=== PATIENT | female | born 1955 | race Caucasian/White ===

== ENCOUNTER 2020-07-19 11:55 | Outpatient (REF) | payer OTHER, SELFPAY ==
[2020-07-19 14:44] LABS: Alanine Aminotransferase 21 U/L (0-31); Anion Gap 13 (12-20); Blood Urea Nitrogen 14 mg/dL (9-16); Carbon Dioxide 27 mmol/L (22-29); Chloride 106 mmol/L (96-108); Estimated Glomerular Filt Rate > 60; Potassium 4.3 mmol/l (3.3-5.1); Sodium 142 mmol/L (135-145)
== END 2020-07-19 11:56 | disposition home or self-care (01) ==
LOC: HO.HMGCLDS 11:55
PROVIDERS: PCP Family Medicine; Visit Provider Family Medicine
DX: I10 Essential (primary) hypertension (principal); E78.00 Pure hypercholesterolemia, unspecified; Z79.899 Other long term (current) drug therapy
CPT/HCPCS: 80051; 82550; 82565; 84460; 84520

== ENCOUNTER 2021-04-26 14:16 | Outpatient (REF) | payer MEDICARE, SELFPAY ==
[2021-04-26 17:19] LABS: Alanine Aminotransferase 23 U/L (0-31); Anion Gap 12 (12-20); Blood Urea Nitrogen 18 mg/dL (9-16); Carbon Dioxide 24 mmol/L (22-29); Chloride 109 mmol/L (96-108); Estimated Glomerular Filt Rate > 60; Potassium 4.3 mmol/L (3.3-5.1); Sodium 141 mmol/L (135-145)
== END 2021-04-26 14:17 | disposition home or self-care (01) ==
LOC: HO.HMGCLDS 14:16
PROVIDERS: PCP Family Medicine; Visit Provider Family Medicine
DX: I10 Essential (primary) hypertension (principal); E78.00 Pure hypercholesterolemia, unspecified; Z79.899 Other long term (current) drug therapy
CPT/HCPCS: 36415; 80051; 82550; 82565; 84460; 84520

== ENCOUNTER 2021-08-01 10:59 | Outpatient (REF) | payer MEDICARE, SELFPAY ==
[2021-08-01 12:03] LABS: MANUAL DIFF FLAG NO
[2021-08-01 12:09] LABS: Basophils Absolute Auto 0.1 X10*3/uL (0.0-0.2); Basophils Percent Auto 1.4 % (0-2); Eosinophils Absolute Auto 0.3 X10*3/uL (0.0-0.4); Eosinophils Percent Auto 3.2 % (0-4); Hematocrit 37.8 % (37-47); Hemoglobin 12.7 g/dl (12.0-16.0); Imm Gran Abs Auto 0.02 X10*3/uL (0.00-0.03); Imm Gran Pct Auto 0.3 % (0.0-0.4); Lymphocytes Absolute Auto 1.7 X10*3/uL (1.2-4.9); Mean Corpuscular HGB Conc 33.6 g/dl (31.0-35.0); Mean Corpuscular Hemoglobin 30.6 pg (27.0-33.0); Mean Corpuscular Volume 91.1 fL (80-98); Mean Platelet Volume 8.4 fL (9.4-12.3); Monocytes Absolute Auto 0.5 X10*3/uL (0.1-1.2); Monocytes Percent Auto 6.3 % (2-11); Neutrophils Absolute Auto 5.2 X10*3/uL (2.0-8.3); Neutrophils Percent Auto 66.8 % (45-73); Platelet Count 505 X10*3/uL (160-400); Red Blood Count 4.15 X10*6/uL (4.20-5.50); Red Cell Distribution Width 12.5 % (11.0-16.0); White Blood Count 7.8 X10*3/uL (4.8-10.8)
[2021-08-01 12:32] LABS: Alanine Aminotransferase 19 U/L (0-31); Albumin Level 4.5 g/dL (3.5-5.0); Alkaline Phosphatase 67 U/L (39-117); Anion Gap 12 (12-20); Aspartate Amino Transferase 18 U/L (5-31); Bilirubin Total 0.4 mg/dL (0.0-1.0); Blood Urea Nitrogen 15 mg/dL (9-16); Calcium 9.9 mg/dL (8.4-10.2); Carbon Dioxide 26 mmol/L (22-29); Chloride 106 mmol/L (96-108); Estimated Glomerular Filt Rate > 60; Glucose Random 89 mg/dL (60-115); Potassium 4.3 mmol/L (3.3-5.1); Sodium 140 mmol/L (135-145); Total Protein 7.1 g/dL (6.5-8.0)
[2021-08-02 04:15] LABS: Syphilis Screen Nonreactive (Nonreactive)
[2021-08-02 17:42] LABS: Streptolysin O Antibody 65 IU/mL (<200)
[2021-08-05 15:06] LABS: TS Negative Control Passed; TS Panel A 0; TS Panel B 0; TS Positive Control Passed; TSpotTB Negative (SeeBelow)
[2021-08-06 14:12] LABS: HLA B27 Positive (Negative)
[2021-08-07 14:11] LABS: Angiotensin Converting Enzyme 22 U/L (9-67)
[2021-08-07 16:47] LABS: Lysozyme, Serum 6.1 mcg/mL (5.0-11.0)
== END 2021-08-01 11:00 | disposition home or self-care (01) ==
LOC: HO.HMGCLDS 10:59
PROVIDERS: PCP Family Medicine; Visit Provider Ophthalmology
DX: H20.011 Primary iridocyclitis, right eye (principal); H40.033 Anatomical narrow angle, bilateral; H33.312 Horseshoe tear of retina without detachment, left eye
CPT/HCPCS: 36415; 80053; 82164; 85025; 85549; 86060; 86481; 86780; 86812

== ENCOUNTER 2021-08-29 11:33 | Outpatient (REF) | payer MEDICARE, SELFPAY ==
--- NOTE | ~2021-08-29 | XR_ITS ---
EXAMINATION: XR LUMBOSACRAL SPINE CLINICAL INFORMATION: Back pain; rule out vertebral fracture COMPARISON: None TECHNIQUE: Three views of the lumbosacral spine. FINDINGS: There is mild diffuse osteopenia without focal destructive lesion. There is no fracture or vertebral malalignment. The posterior elements are intact. There is mild to moderate disc space narrowing at L3-L4 and L4-L5 and moderate narrowing at L5-S1. There are mild endplate degenerative changes at these levels. There is mild spondylosis throughout the lumbar region. The posterior elements are intact. There is bilateral sacroiliitis, more severe on the right. The paraspinal soft tissues appear unremarkable. XR/XR lumbar spine 2-3V IMPRESSION: Spondylosis in the lumbar spine. Bilateral sacroiliitis, greater on the right.
[2021-08-29 11:51] LABS: MANUAL DIFF FLAG NO
[2021-08-29 12:28] LABS: Basophils Percent Auto 0.3 % (0-2); Eosinophils Percent Auto 0.2 % (0-4); Hematocrit 40.6 % (37.0-47.0); Hemoglobin 13.4 g/dl (12.0-16.0); Imm Gran Abs Auto 0.06 X10*3/uL (0.00-0.03); Imm Gran Pct Auto 0.5 % (0.0-0.4); Lymphocytes Percent Auto 7.6 % (20-40); Mean Corpuscular Hemoglobin 30.7 pg (27.0-33.0); Mean Corpuscular Volume 93.1 fL (80.0-98.0); Mean Platelet Volume 9.1 fL (9.4-12.3); Monocytes Absolute Auto 0.4 X10*3/uL (0.1-1.2); Monocytes Percent Auto 3.1 % (2-11); Neutrophils Absolute Auto 11.3 x10*3/uL (2.0-8.3); Neutrophils Percent Auto 88.3 % (45-73); Platelet Count 376 X10*3/uL (160-400); Red Blood Count 4.36 X10*6/uL (4.20-5.50); Red Cell Distribution Width 13.7 % (11.0-16.0); White Blood Count 12.7 X10*3/uL (4.8-10.8)
[2021-08-29 12:36] LABS: Appearance Urine CLEAR; Color Urine YELLOW; Glucose Urine UA NEG (NEG); Leukocyte Esterase Urine NEG (NEG); Nitrite Urine NEG (NEG); Urine Blood NEG (NEG); Urine Ketones NEG (NEG); Urine Protein NEG (NEG-TRACE)
[2021-08-29 14:38] LABS: Erythrocyte Sedimentation Rate 5 MM/HR (0-20)
[2021-08-30 10:31] LABS: Lyme Abs Screen <0.90 index
[2021-08-30 14:11] LABS: Anti DNA DS Antibody <1 IU/mL; Antibody to SS-A Antigen <1.0 NEG AI (<1.0 NEG); Antibody to SS-B Antigen <1.0 NEG AI (<1.0 NEG)
[2021-08-31 12:07] LABS: Anti Nuclear Antibody Screen NEGATIVE (NEGATIVE)
[2021-09-03 16:06] LABS: Neutrophil Cyto Ab Screen NEGATIVE (NEGATIVE)
== END 2021-08-29 11:34 | disposition home or self-care (01) ==
LOC: HO.XRAY 11:33
PROVIDERS: PCP Family Medicine; Visit Provider Family Medicine
DX: M46.97 Unspecified inflammatory spondylopathy, lumbosacral region (principal); H20.9 Unspecified iridocyclitis
CPT/HCPCS: 36415; 72100; 81003; 85025; 85652; 86021; 86038; 86039; 86225; 86235; 86617; 86618

== ENCOUNTER 2021-09-24 14:14 | Outpatient (REF) | payer MEDICARE, SELFPAY | END 2021-09-24 14:15 | disposition home or self-care (01) | LOC: HO.HMGCLDS 14:14 | PROVIDERS: Visit Provider Internal Medicine | DX: Z20.822 Contact with and (suspected) exposure to COVID-19 (principal) | CPT/HCPCS: C9803; U0003; U0005 ==

== ENCOUNTER 2022-02-12 10:55 | Outpatient (REF) | payer MEDICARE, SELFPAY ==
--- NOTE | ~2022-02-12 | XR_ITS ---
EXAMINATION: XR CALCANEUS, RIGHT CLINICAL INFORMATION: Pain for one month. COMPARISON: None TECHNIQUE: Lateral and axial views of the right calcaneus were obtained. FINDINGS: The bones and soft tissues are normal. No fracture. Alignment is anatomic. Joint spaces are maintained. No enthesopathic spurs are evident at the calcaneus. XR/XR calcaneus RT min 2V IMPRESSION: Normal right calcaneus.
== END 2022-02-12 10:56 | disposition home or self-care (01) ==
LOC: HO.XRAY 10:55
PROVIDERS: PCP Family Medicine; Visit Provider Family Medicine
DX: M79.671 Pain in right foot (principal)
CPT/HCPCS: 73650

== ENCOUNTER 2022-03-25 11:00 | Outpatient (REF) | payer MEDICARE, SELFPAY ==
[2022-03-25 14:10] LABS: Alanine Aminotransferase 23 U/L (0-31); Anion Gap 10 (12-20); Blood Urea Nitrogen 15 mg/dL (9-16); Carbon Dioxide 27 mmol/L (22-29); Chloride 104 mmol/L (96-108); Estimated Glomerular Filt Rate > 60; Potassium 4.3 mmol/L (3.3-5.1); Sodium 137 mmol/L (135-145)
== END 2022-03-25 11:01 | disposition home or self-care (01) ==
LOC: HO.10HDL 11:00
PROVIDERS: Visit Provider Family Medicine
DX: I10 Essential (primary) hypertension (principal); E78.00 Pure hypercholesterolemia, unspecified; Z79.899 Other long term (current) drug therapy
CPT/HCPCS: 36415; 80051; 82550; 82565; 84460; 84520

== ENCOUNTER 2023-01-26 08:42 | Outpatient (REF) | payer MEDICARE, SELFPAY ==
[2023-01-26 12:15] LABS: Anion Gap 13 (12-20); Blood Urea Nitrogen 13 mg/dL (9-16); Carbon Dioxide 27 mmol/L (22-29); Chloride 106 mmol/L (96-108); Cholesterol 158 mg/dL; Estimated Glomerular Filt Rate > 60; Glucose Fasting 91 mg/dL (60-99); HDL Cholesterol 51 mg/dL; LDL Cholesterol Calculated 91 mg/dl; Potassium 4.5 mmol/L (3.3-5.1); Sodium 141 mmol/L (135-145); Triglycerides 82 mg/dL
== END 2023-01-26 08:43 | disposition home or self-care (01) ==
LOC: HO.HMGCLDS 08:42
PROVIDERS: PCP Family Medicine; Visit Provider Family Medicine
DX: I10 Essential (primary) hypertension (principal); E78.00 Pure hypercholesterolemia, unspecified; R73.9 Hyperglycemia, unspecified
CPT/HCPCS: 36415; 80051; 80061; 82565; 82947; 84520

== ENCOUNTER 2023-10-13 14:15 | Outpatient (REF) | payer MEDICARE, SELFPAY ==
[2023-10-13 16:18] LABS: Anion Gap 13 (12-20); Blood Urea Nitrogen 20 mg/dL (9-16); Carbon Dioxide 28 mmol/L (22-29); Chloride 107 mmol/L (96-108); Estimated Glomerular Filt Rate > 60; Potassium 4.5 mmol/L (3.3-5.1); Sodium 143 mmol/L (135-145)
== END 2023-10-13 14:16 | disposition home or self-care (01) ==
LOC: HO.HMGCLDS 14:15
PROVIDERS: PCP Family Medicine; Visit Provider Family Medicine
DX: I10 Essential (primary) hypertension (principal)
CPT/HCPCS: 36415; 80051; 82565; 84520

== ENCOUNTER 2024-06-20 07:19 | Outpatient (REF) | payer MEDICARE, SELFPAY ==
[2024-06-20 10:50] LABS: Alanine Aminotransferase 18 U/L (0-31); Anion Gap 13 (12-20); Aspartate Amino Transferase 15 U/L (5-31); Carbon Dioxide 24 mmol/L (22-29); Chloride 109 mmol/L (96-108); Cholesterol 162 mg/dL (<200); Estimated Glomerular Filt Rate > 60; Glucose Fasting 105 mg/dL (60-99); HDL Cholesterol 56 mg/dL (>40); LDL Cholesterol Calculated 89 mg/dL (<100); Potassium 4.2 mmol/L (3.3-5.1); Sodium 142 mmol/L (135-145); Triglycerides 86 mg/dL (<150)
== END 2024-06-20 07:20 | disposition home or self-care (01) ==
LOC: HO.HMGCLDS 07:19
PROVIDERS: PCP Family Medicine; Visit Provider Family Medicine
DX: I10 Essential (primary) hypertension (principal); E78.00 Pure hypercholesterolemia, unspecified; Z79.899 Other long term (current) drug therapy; Z83.3 Family history of diabetes mellitus
CPT/HCPCS: 36415; 80051; 80061; 82550; 82565; 82947; 84450; 84460

== ENCOUNTER 2024-08-03 10:05 | Outpatient (REF) | payer MEDICARE, SELFPAY ==
--- NOTE | ~2024-08-03 | XR_ITS ---
EXAMINATION: XR CHEST CLINICAL INFORMATION: Cough. COMPARISON: 02/20/2015 TECHNIQUE: 2 views of the chest were obtained. FINDINGS: Lungs clear. Heart and pulmonary vessels normal. No pleural effusions. Kyphosis in the thoracic spine but no fracture. XR/XR chest 2V IMPRESSION: Unremarkable examination. Electronically signed by: Adarsh Crow MD 08/03/2024 02:35 PM EDT RP
== END 2024-08-03 10:06 | disposition home or self-care (01) ==
LOC: HO.XRAY 10:05
PROVIDERS: PCP Family Medicine; Visit Provider Family Medicine
DX: R05.9 Cough, unspecified (principal)
CPT/HCPCS: 71046

== ENCOUNTER 2024-10-26 12:07 | Outpatient (REF) | payer MEDICARE, SELFPAY ==
[2024-10-26 12:56] LABS: MANUAL DIFF FLAG NO
[2024-10-26 13:03] LABS: Basophils Absolute Auto 0.1 X10*3/uL (0.0-0.2); Basophils Percent Auto 1.4 % (0-2); Eosinophils Absolute Auto 0.3 X10*3/uL (0.0-0.4); Eosinophils Percent Auto 2.8 % (0-4); Hematocrit 38.3 % (37.0-47.0); Hemoglobin 12.7 g/dl (12.0-16.0); Imm Gran Abs Auto 0.03 X10*3/uL (0.00-0.03); Imm Gran Pct Auto 0.3 % (0.0-0.4); Lymphocytes Absolute Auto 2.2 X10*3/uL (1.2-4.9); Lymphocytes Percent Auto 23.3 % (20-40); Mean Corpuscular HGB Conc 33.2 g/dl (31.0-35.0); Mean Corpuscular Hemoglobin 30.2 pg (27.0-33.0); Mean Corpuscular Volume 91.2 fL (80.0-98.0); Mean Platelet Volume 8.7 fL (9.4-12.3); Monocytes Absolute Auto 0.6 X10*3/uL (0.1-1.2); Monocytes Percent Auto 6.3 % (2-11); Neutrophils Absolute Auto 6.2 x10*3/uL (2.0-8.3); Neutrophils Percent Auto 65.9 % (45-73); Platelet Count 459 X10*3/uL (160-400); White Blood Count 9.4 X10*3/uL (4.8-10.8)
[2024-10-26 13:15] LABS: Alanine Aminotransferase 24 U/L (0-31); Albumin Level 4.3 g/dL (3.5-5.0); Alkaline Phosphatase 69 U/L (39-117); Anion Gap 9 (12-20); Aspartate Amino Transferase 21 U/L (5-31); Bilirubin Total 0.2 mg/dL (0.0-1.0); Blood Urea Nitrogen 15 mg/dL (9-16); Calcium 9.6 mg/dL (8.4-10.2); Carbon Dioxide 26 mmol/L (22-29); Chloride 112 mmol/L (96-108); Estimated Glomerular Filt Rate > 60; Glucose Random 123 mg/dL (60-115); Potassium 3.8 mmol/L (3.3-5.1); Sodium 143 mmol/L (135-145); Total Protein 7.2 g/dL (6.5-8.0)
[2024-10-26 13:31] LABS: Thyroid Stimulating Hormone 0.27 uIU/mL (0.32-4.0)
[2024-10-26 13:49] LABS: Erythrocyte Sedimentation Rate 25 MM/HR (0-20)
== END 2024-10-26 12:08 | disposition home or self-care (01) ==
LOC: HO.10HDL 12:07
PROVIDERS: Visit Provider Family Medicine
DX: R06.02 Shortness of breath (principal); R00.2 Palpitations
CPT/HCPCS: 36415; 80053; 84443; 85025; 85652

== ENCOUNTER 2024-10-26 12:15 | Outpatient (REF) | payer MEDICARE, SELFPAY ==
--- NOTE | ~2024-10-26 | XR_ITS ---
EXAMINATION: XR CHEST CLINICAL INFORMATION: COUGH COMPARISON: Chest x-ray 08/03/2024 TECHNIQUE: 2 views of the chest were obtained. FINDINGS: Lungs are slightly hypoexpanded without acute pneumonic process. No pleural effusion or thickening. The heart size and pulmonary vascularity is normal. There is mild exaggerated thoracic kyphosis, stable. XR/XR chest 2V IMPRESSION: Slightly hypoexpanded lungs but no acute process. Exaggerated thoracic kyphosis, stable. Electronically signed by: Keith Doyle MD 10/26/2024 12:59 PM EST
== END 2024-10-26 12:16 | disposition home or self-care (01) ==
LOC: HO.XRAY 12:15
PROVIDERS: PCP Family Medicine; Visit Provider Family Medicine
DX: R05.9 Cough, unspecified (principal); R06.02 Shortness of breath
CPT/HCPCS: 71046

== ENCOUNTER → 2024-10-26 12:21 | Outpatient (BNV) | payer MEDICARE, SELFPAY | PROVIDERS: PCP Family Medicine; Visit Provider Radiology Diagnostic Radiology | DX: R05.9 Cough, unspecified (principal) | CPT/HCPCS: 71046 ==

== ENCOUNTER 2024-12-29 07:32 | Outpatient (REF) | payer MEDICARE, SELFPAY ==
[2024-12-29 10:59] LABS: T4 Thyroxine 8.9 ug/dL (4.5-12.0); Thyroid Stimulating Hormone 0.48 uIU/mL (0.32-4.0)
== END 2024-12-29 07:33 | disposition home or self-care (01) ==
LOC: HO.HMGCLDS 07:32
PROVIDERS: PCP Family Medicine; Visit Provider Family Medicine
DX: I10 Essential (primary) hypertension (principal)
CPT/HCPCS: 36415; 84436; 84443

== ENCOUNTER 2025-06-01 09:04 | Outpatient (AMB) | payer MEDICARE, SELFPAY ==
--- OUTSIDE RECORDS SUMMARY | 2025-06-01 10:06 | XMS_ITS | Patient Health Record ---
[facility] [place] Address [address] [place] [address] Care Team Providers Care Web Administrator Name Role Phone Francisco CLARKE, Alvarez Primary Care Provider Unavailab johana NgTalyae Unavailable [phone] Allergies Allergen (clinical drug ingredient) Drug/Non Drug Allergy documented on EMR Reaction Allergy Type Onset Date Status Sudafed Unknown Drug Allergy Active Reason For Referral No Information Medications Medication SIG (Take, Route, Frequency, Duration) Notes Start Date End Date Status Cyclobenzaprine HCl 10 MG 1 tablet at be dtime as needed Orally Once a day; Duration: 30 day(s) Active Losartan Potassium 100 MG 1 tablet Orall y Once a day; Duration: 30 day(s) Active LORazepam 0.5 MG 1 tablet at bedtime as needed Orally Once a day Active Simvastatin 20 MG 1 tablet in the even ing Orally Once a day; Duration: 30 day(s) Active Social History Tobacco Use: Social History Observation Description Date Details (start date - stop date) Never Smoker NA - NA Tobacco Use/Smoking Question Answer Notes Are you a: nonsmoker Additional Findings: Tobacco Non-User Current no n-smoker Alcohol Screen Question Answer Notes Did you have a drink contain ing alcohol in the past year? Yes How often did you have a dri nk containing alcohol in the past year? 2 to 3 times a week (3 points) Points 3 Interpretation Positive Tobacco use other than smoking: Question Answer Notes Are you an other tobacco user? No Problems No Known Problems Plan Of Treatment No Information Insurance Providers Payer Name Payer Address Payer Phone Subscriber Number Group Number Insured Name Patient Relationship to Insured Coverage Start Date Coverage End Date Medicare National Govt Svcs Inc [address] [place] [address] [id number] Sugey Smyth Self - patient is the insured [employer] [facility] [address] [place] [address] [id number] Sugey Smyth Self - patient is the insured Medical (General) History Medical History History ICD Code Anxiety Arthritis Back,Hip,and Knee pain Glaucoma High blood pressure Surgical History Surgery Date(Month/Year) x2 05/04/1976,12/21/1978 hysterectomy 12/30/1978
--- OUTSIDE RECORDS SUMMARY | 2025-06-01 10:06 | XMS_ITS | Clinical Summary ---
Author Organization [facility] Address [address] [place] [address] Phone Care Team Providers Care Seed Buyer Name Role Phone Gabby Ireland MD Primary Care Provider [phone] Encounters Date Type Department Care Team Description 05/25/2025 9:53 AM EDT - 05/25/2025 11:59 PM EDT [facility] [address] [address] Encounter for screening mammogram for breast cancer Discharge Disposition: Home or Self Care from Last 3 Months Surgical History Surgery Date Site/Laterality Comments HYSTERECTOMY Family History Medical History Relation Name Comments Breast cancer Cousin Relation Name Status Comments Cousin Alive Social History Tobacco Use Types Packs/Day Years Used Date Smoking Tobacco: Never Assessed Comments No Sex and Gender Information Value Date Recorded Sex Assigned at Not on file Legal Sex Female 4:39 AM EST Gender Identity Not on file Sexual Orientation Not on file Obstetrics History Para Term AB IAB SAB Ectopic Multiple Livin g Live Births 2 Last Filed Vital Signs Vital Sign Reading Time Taken Comments Blood Pressure - - Pulse - - Temperature - - Respiratory Rate - - Oxygen Saturation - - Inhaled Oxygen Concentration - - Weight 66.7 kg (147 lb) 05/25/2025 10:01 AM EDT Height 162.6 cm (5' 4 ) 05/25/2025 10:01 AM EDT Body Mass Index 25.23 05/25/2025 10:01 AM EDT Plan of Treatment Health Maintenance Due Date Last Done Comments DTaP,Tdap,and Td Vaccines (1 - Tdap) 1974 Colorectal Cancer Screening: Colonoscopy 09/14/2022 Falls Risk Assessment 09/14/2022 Hepatitis C Screening 09/14/2022 Medicare Annual Wellness Visit 09/14/2022 Osteoporosis Screening (Bone Density Screening) 09/14/2022 Social Influencers of Health Screening 09/14/2022 Depression Screening 10/12/2024 COVID-19 Vaccine ( season) 2025 07/04/2024, 07/17/2023, 07/25/2022, Additional history exists Influenza Vaccine (#1) 2025 , 08/07/2023, 09/18/2022, Additional history exists Breast Cancer Screening 05/25/2027 05/25/20, 05/11/2024, 04/21/2023, Additional history exists RSV Immunization Adult Patients (1 - 1-dose 75+ series) 2028 Zoster Vaccines Completed 03/19/2019, 12/07/2018 Pneumococcal Vaccine: 50+ Years Completed 10/23/2019, 07/30/2018 HIB Vaccines Aged Out No longer eligi ble based on patient's age to complete this topic HPV Vaccines Aged Out No longer eligi ble based on patient's age to complete this topic Hepatitis A Vaccines Aged Out No long er eligible based on patient's age to complete this topic Hepatitis B Vaccines Aged Out No long er eligible based on patient's age to complete this topic IPV Vaccines Aged Out No longer eligi ble based on patient's age to complete this topic MMR Vaccines Aged Out No longer eligi ble based on patient's age to complete this topic Meningococcal ACWY Vaccine Aged Out N o longer eligible based on patient's age to complete this topic Meningococcal B Vaccine Aged Out No l onger eligible based on patient's age to complete this topic RSV Immunization Patients Under 20 months Aged Out No longer eligible based on patient's age to complete this topic Varicella Vaccines Aged Out No longer eligible based on patient's age to complete this topic Procedures Procedure Name Priority Date/Time Associated Diagnosis Comments MG MAMMO DIGITAL SCREENING W FELICIANO BILAT Routine 05/25/2025 10:11 AM EDT Encounter for screening mammogram for breast cancer from Last 3 Months Results * MG Mammo Digital Screening w Feliciano bilat (05/25/2025 10:11 AM EDT) Anatomical Region Laterality Modality Breast Bilateral Mammography 05/25/2025 11:1 0 AM EDT Impressions 05/25/2025 12:50 PM EDT No mammographic evidence of malignancy. No suspicious interval change. A negative mammogram in the presence of a clinically suspicious palpable abnormality does not preclude the possibility of malignancy or alter the indications for biopsy. ASSESSMENT: BI-RADS 1: NEGATIVE RECOMMENDATION(S): 1: Routine screening mammogram BILATERAL in 1 year. [facility] [address], [address] -------- FINAL REPORT -------- Dictated By: Az Leger Dictated Date: 05/25/2025 11:10 ET Assigned Physician: Az Leger Reviewed and Electronically Signed By: Az Leger Signed Date: 05/25/2025 12:50 ET Workstation ID: [id number] Transcribed By: Self Edit Transcribed Date: 05/25/2025 11:42 ET Narrative 05/25/2025 12:50 PM EDT EXAM: SCREENING MAMMOGRAPHY, BILATERAL HISTORY: SCREENING. Cousin with history of breast cancer. Technologist indicates patient was unable to tolerate compression. COMPARISON: 05/11/24, 04/20/23, 04/02/22, 03/05/21 TECHNIQUE: Synthesized CC and MLO projections of each breast. Tomosynthesis of each breast in the CC and MLO projections. ADDITIONAL IMAGING: None Computer-aided detection was employed with the [employer] AI 3-D. TISSUE DENSITY: There are scattered areas of fibroglandular density. (BI-RADS category B) FINDINGS: RIGHT BREAST: No suspicious mass. No suspicious calcification. No distortion. No additional suspicious right breast findings LEFT BREAST: No suspicious mass. No suspicious calcification. No distortion. No additional suspicious left breast findings Procedure Note Az Leger MD - 05/25/2025 EXAM: SCREENING MAMMOGRAPHY, BILATERAL HISTORY: SCREENING. Cousin with history of breast cancer. Technologist indicates patient was unable to tolerate compression. COMPARISON: 05/11/24, 04/20/23, 04/02/22, 03/05/21 TECHNIQUE: Synthesized CC and MLO projections of each breast.Tomosynthesis of each breast in the CC and MLO projections. ADDITIONAL IMAGING: None Computer-aided detection was employed with the [employer] AI 3-D. TISSUE DENSITY: There are scattered areas of fibroglandular density.(BI-RADS category B) FINDINGS: RIGHT BREAST: No suspicious mass. No suspicious calcification. No distortion. Noadditional suspicious right breast findings LEFT BREAST: No suspicious mass. No suspicious calcification. No distortion. Noadditional suspicious left breast findings IMPRESSION: No mammographic evidence of malignancy. No suspicious interval change. A negative mammogram in the presence of a clinically suspicious palpableabnormality does not preclude the possibility of malignancy or alter theindications for biopsy. ASSESSMENT: BI-RADS 1: NEGATIVE RECOMMENDATION(S): 1: Routine screening mammogram BILATERAL in 1 year. [facility] location[facility] at [address], [address] -------- FINAL REPORT -------- Dictated By: Az Leger Dictated Date: 05/25/2025 11:10 ET Assigned Physician: zA Leger Reviewed and Electronically Signed By: Az Leger Signed Date: 05/25/2025 12:50 ET Workstation ID: [id number] Transcribed By: Self Edit Transcribed Date: 05/25/2025 11:42 ET us Self Referral Sppl IMG BI PROCEDURES Final Resul t from Last 3 Months [facility] Care Teams Seed Buyer Relationship Specialty Start Date End Date Gabby Ireland MD [facility] [place] [address] PCP - General Internal Medicine 05/25/25
--- OUTSIDE RECORDS SUMMARY | 2025-06-01 10:06 | XMS_ITS | Clinical Summary ---
Author Organization [facility] Address [address] [facility] [address] [place] [address] Phone Care Team Providers Care Tariff Inspector Name Role Phone Alvarez Singh MD Primary Care Provider [phone] Allergies Active Allergy Reactions Criticality Noted Date Comments Pseudoephedrine Hcl Hives 03/17/2024 Medications simvastatin (ZOCOR) 20 MG tablet Take 20 mg by mouth nightly at bedtime. 12/11/2023 Active losartan (COZAAR) 100 MG tablet Take 100 mg by mouth every morning. 12/11/2023 Active LORazepam (ATIVAN) 0.5 MG tablet 0.5 mg. 02/11/2024 Active cyclobenzaprine (FLEXERIL) 10 MG tablet 10 mg. 02/11/2024 Active Family History Medical History Relation Comments Heart disease Father Diabetes Maternal Grandfather Diabetes Maternal Grandmother Lung cancer Mother Prediabetes Mother Heart disease Paternal Grandmother Relation Status Comments Father Maternal Grandfather Maternal Grandmother Mother Paternal Grandfather Paternal Grandmother Sister Alive Social History Tobacco Use Types Packs/Day Years Used Date Smoking Tobacco: Never Smokeless Tobacco: Never Tobacco Cessation:Counseling Given: No Alcohol Use Standard Drinks/Week Comments Yes 0 (1 standard drink = 0.6 oz pur e alcohol) 3-4 weekly Education Answer Date Recorded Are you interested in more education? Not on kalee e 02/12/2024 Are you concerned about learning? Not on file 02/12/2024 No 02/12/2024 No 02/12/2024 Digital Access Answer Date Recorded No 02/12/2024 No 02/12/2024 Reliable internet access at home? Not on file 02/12/2024 Device with a working camera? Not on file Comments No Sex and Gender Information Value Date Recorded Sex Assigned at Not on file Legal Sex Female 3:21 PM EDT Gender Identity Not on file Sexual Orientation Not on file Last Filed Vital Signs Vital Sign Reading Time Taken Comments Blood Pressure 142/84 03/31/2024 1:43 PM EDT Pulse - - Temperature - - Respiratory Rate - - Oxygen Saturation - - Inhaled Oxygen Concentration - - Weight 68 kg (150 lb) 03/31/2024 1:43 PM EDT Height 157.5 cm (5' 2 ) 03/31/2024 1:43 PM EDT Body Mass Index 27.44 03/31/2024 1:43 PM EDT Plan of Treatment Health Maintenance Due Date Last Done Comments Adult Td,Tdap Booster 1953 CREATININE LEVEL 1953 LIPID PANEL 1953 POTASSIUM LEVEL 1953 DEPRESSION SCREENING 1965 HEPATITIS C SCREENING 1971 MAMMOGRAM 1993 COLOGUARD 1998 COLONOSCOPY 1998 COLORECTAL CANCER SCREENING 1998 FIT TEST 1998 FOBT 1998 SIGMOIDOSCOPY 1998 VIRTUAL COLONOSCOPY 1998 OSTEOPOROSIS SCREENING INITIAL (ONE-TIME) 2018 COVID-19 VACCINE ( season) 2024 07/17/2023, 07/25/2022, 01/28/2022, Additional history exists RSV VACCINE (1 - 1-dose 75+ series) 2028 ZOSTER VACCINES Completed 03/19/2019, 12/07/2018 PNEUMOCOCCAL VACCINES (50+ years) Completed 10/23/2019, 07/30/2018 SMOKING STATUS SCREENING (Once After 26 Yrs) Completed 03/31/2024 HEPATITIS A VACCINES Aged Out No long er eligible based on patient's age to complete this topic HIB VACCINES Aged Out No longer eligi ble based on patient's age to complete this topic MENINGOCOCCAL VACCINES (ACWY) Aged Out No longer eligible based on patient's age to complete this topic MENINGOCOCCAL VACCINES (B) Aged Out N o longer eligible based on patient's age to complete this topic Medical Devices Not on file Insurance [employer] MEDEX SUPPLEMENT MEDICARE PART A & B [employer] MEDEX SUPPLEMENT MEDICARE PART A & B [employer] MEDEX SUPPLEMENT MEDICARE PART A & B [employer] CROSS MEDEX SUPPLEMENT MEDICARE PART A & B [employer] CROSS MEDEX SUPPLEMENT MEDICARE PART A & B [employer] MEDEX SUPPLEMENT MEDICARE PART A & B Care Teams Tariff Inspector Relationship Specialty Start Date End Date Alvarez Singh MD [address] [place] [address] [place] [address] PCP - General Internal Medicine 02/12/24 Additional Source Comments The information contained in this document represents components of the legal health record. It is not the complete legal health record.[facility]
--- OUTSIDE RECORDS SUMMARY | 2025-06-01 10:06 | XMS_ITS | Patient Health Record ---
Author Organization [facility] Address [address] [place] [address] Care Team Providers Care Gold Charmer Name Role Phone Francisco (RETIRED) Alvarez CLARKE Primary Care Provider Unavailable [facility] Solorzano Unavailable [phone] Allergies Allergen (clinical drug ingredient) Drug/Non Drug Allergy documented on EMR Reaction Allergy Type Onset Date Status Sudafed Unknown Drug Allergy Active Reason For Referral No Information Medications Medication SIG (Take, Route, Fr equency, Duration) Notes Start Date End Date Status LORazepam 0.5 MG 1 tablet as needed O rally every 6 hrs Active Lisinopril 10 MG 1 tablet Orally Once a day for 30 day(s) Active Aspirin 81 81 MG 1 tablet Orally Once a day for 30 day(s) Not-Taking Meclizine HCl 25 MG 1 tablet as needed O rally Once a day for 30 day(s) Active Simvastatin 20 MG 1 tablet in the even ing Orally Once a day for 30 day(s) Active Immunizations Vaccine Route Administration Date Status Comme nts Influenza Unknown 08/12/2018 Administered Social History Tobacco Use: Social History Observation Description Date Details (start date - stop date) Never Smoker NA - NA Tobacco Use/Smoking Question Answer Notes Patient is a nonsmoker Alcohol Screen Question Answer Notes Did you have a drink contain ing alcohol in the past year? Yes How often did you have a dri nk containing alcohol in the past year? 2 to 3 times a week (3 points) How many drinks did you have on a typical day when you were drinking in the past year? 1 or 2 drinks (0 point) How often did you have 6 or more drinks on one occasion in the past year? Never (0 point) Points 3 Interpretation Positive Section Notes: Red wine with meals 3 times a week ; nonsmoker Problems Problem Type SNOMED Code ICD Code Onset Dates Problem Status W/U Status Risk Notes Problem 903409307 Encounter for screening for malignant neoplasm of colon (Z12.11) Active confirmed Problem [id number] Preprocedural examination (Z01.818) Active confirmed Plan Of Treatment Future Test Test Name Order Date COLONOSCOPY 10/26/2018 Insurance Providers Payer Name Payer Address Payer Phone Subscriber Number Group Number Insured Name Patient Relationship to Insured Coverage Start Date Coverage End Date [facility] [address] [place] [phone] [id number] VIVIAN SMYTH Self - patient is the insured Medical (General) History Medical History History ICD Code Hypertension Denies AR,DM,CVA,Lung disease,renal dise ase Hyperlipidemia Rare panic attacks Colonoscopy 07/2008--hyperpl astic polyp, occasional sigmoid diverticulosis, small internal hemorrhoids Surgical History Surgery Date(Month/Year) C-sections X 2 Partial hysterectomy
== END 2025-06-01 09:24 | disposition home or self-care (01) ==
LOC: HO.HMGAL 09:04
PROVIDERS: PCP Family Medicine; Visit Provider Registered Nurse Emergency
DX: J30.89 Other allergic rhinitis (principal)
CPT/HCPCS: 95117; 95165

== ENCOUNTER 2025-07-17 15:34 | Outpatient (AMB) | payer MEDICARE, SELFPAY ==
--- OUTSIDE RECORDS SUMMARY | 2025-07-17 17:56 | XMS_ITS | Clinical Summary ---
Author Organization [facility] Address [address] [facility] [address] [place] [address] Phone Care Team Providers Care Plant Protection Supervisor Name Role Phone Alvarez Singh MD Primary Care Provider Allergies Active Allergy Reactions Criticality Noted Date [...] COLONOSCOPY 1998 OSTEOPOROSIS SCREENING INITIAL (ONE-TIME) 2018 INFLUENZA VACCINE (#1) 2025 , 09/18/2022, 09/23/2021, Additional history exists COVID-19 VACCINE (2024- season) 2025 07/17/2023, 07/25/2022, 01/28/2022, Additional history exists RSV [...] topic Medical Devices Not on file Insurance [employer] MEDEX SUPPLEMENT MEDICARE PART A & B [employer] MEDEX SUPPLEMENT MEDICARE PART A & B [employer] MEDEX SUPPLEMENT MEDICARE PART A & B [employer] MEDEX SUPPLEMENT MEDICARE PART A & B [facility] MEDEX SUPPLEMENT MEDICARE PART A & B [employer]UE [employer] MEDEX SUPPLEMENT MEDICARE PART A & B Care Teams Plant Protection Supervisor Relationship Specialty Start Date End Date Alvarez Singh MD [address] [place] [address] [place] [address] PCP - General Internal Medicine 02/12/24 Additional Source Comments The information contained in this document represents components of the legal health record. It is not the complete legal health record.[facility]
--- OUTSIDE RECORDS SUMMARY | 2025-07-17 17:57 | XMS_ITS | Patient Health Record ---
Author [facility] Address [address] [place] [address] Care Team Providers Care Adult Live In Caregiver Name Role Phone Francisco CLARKE, Alvarez Primary Care Provider Unavailab johana Awilda Ng Unavailable [phone] Allergies Allergen (clinical drug ingredient) Drug/Non Drug [...] Medicare National Govt Svcs Inc [address] [place] [address] [id number] Sugey Smyth Self - patient is the insured [employer] [facility] [address] [place] [address] [id number] Sugey Smyth Self - patient is the insured Medical (General) History Medical History History ICD Code Anxiety Arthritis Back,Hip,and Knee pain Glaucoma High blood pressure Surgical History Surgery Date(Month/Year) x2 05/04/1976,12/21/1978 hysterectomy 12/30/1978
--- OUTSIDE RECORDS SUMMARY | 2025-07-17 17:57 | XMS_ITS | Clinical Summary ---
Author Organization [facility] Address [address] [place] [address] Phone Care Team Providers Care Dish Maker Name Role Phone Gabby Ireland MD Primary Care Provider [phone] Encounters Date Type Department Care Team Description 05/25/2025 9:53 AM EDT - 05/25/2025 11:59 PM EDT [facility] [address] [address] Encounter for screening mammogram for [...] Health Maintenance Due Date Last Done Comments Colorectal Cancer Screening: Colonoscopy 1955 DTaP,Tdap,and Td Vaccines (1 - Tdap) 1972 Falls Risk Assessment 09/14/2022 Hepatitis C Screening [...] [facility] [address], [address] -------- FINAL REPORT -------- Dictated By: Az Leger Dictated Date: 05/25/2025 11:10 ET Assigned Physician: Az Leger Reviewed and Electronically Signed By: Az Leger Signed Date: 05/25/2025 12:50 ET Workstation ID: [id number] Transcribed By: Self Edit Transcribed Date: 05/25/2025 [...] None Computer-aided detection was employed with the [employer] AI 3-D. TISSUE DENSITY: There are scattered [...] [facility]amm[facility] location[facility] at [address], [address] -------- FINAL REPORT -------- Dictated By: Az Leger Dictated Date: 05/25/2025 11:10 ET Assigned Physician: Az Leger Reviewed and Electronically Signed By: Az Leger Signed Date: 05/25/2025 12:50 ET Workstation ID: [id number] Transcribed By: Self Edit Transcribed Date: 05/25/2025 11:42 ET us Self Referral Sppl IMG BI PROCEDURES Final Resul t from Last 3 Months Insurance MEDICARE [facility] Care Teams Dish Maker Relationship Specialty Start Date End Date Gabby Ireland MD [facility] [place] [address] PCP - General Internal Medicine 05/25/25
== END 2025-07-17 15:35 | disposition home or self-care (01) ==
LOC: HO.HMGAL 15:34
PROVIDERS: Visit Provider Registered Nurse Emergency
DX: J30.89 Other allergic rhinitis (principal)
CPT/HCPCS: 95117; 95165

== ENCOUNTER 2025-07-20 10:20 | Outpatient (REF) | payer MEDICARE, SELFPAY ==
[2025-07-20 14:16] LABS: Alanine Aminotransferase 20 U/L (0-31); Albumin Level 4.8 g/dL (3.5-5.0); Alkaline Phosphatase 71 U/L (39-117); Anion Gap 12 (12-20); Aspartate Amino Transferase 20 U/L (5-31); Blood Urea Nitrogen 12 mg/dL (9-16); Calcium 9.7 mg/dL (8.4-10.2); Carbon Dioxide 28 mmol/L (22-29); Chloride 107 mmol/L (96-108); Estimated Glomerular Filt Rate > 60; Potassium 4.3 mmol/L (3.3-5.1); Sodium 143 mmol/L (135-145); Total Protein 7.6 g/dL (6.5-8.0)
[2025-07-20 14:17] LABS: Hematocrit 40.4 % (37.0-47.0); Hemoglobin 13.1 g/dl (12.0-16.0); Mean Corpuscular HGB Conc 32.4 g/dl (31.0-35.0); Mean Corpuscular Hemoglobin 29.7 pg (27.0-33.0); Mean Corpuscular Volume 91.6 fL (80.0-98.0); NRBC Abs Auto 0.000 X10*3/uL (0.0-0.012); NRBC Pct Auto 0.0 /100WBC (0.0-0.2); Platelet Count 522 X10*3/uL (160-400); Red Blood Count 4.41 X10*6/uL (4.20-5.50); White Blood Count 8.1 X10*3/uL (4.8-10.8)
[2025-07-20 17:07] LABS: Hemoglobin A1C 132.7741 umol/L; Total Hemoglobin (HGBA1C) 3328.7751 umol/L
== END 2025-07-20 10:21 | disposition home or self-care (01) ==
LOC: HO.10HDL 10:20
PROVIDERS: Visit Provider Physician Assistant Medical
DX: Z00.00 Encounter for general adult medical examination without abnormal findings (principal); Z13.1 Encounter for screening for diabetes mellitus; I10 Essential (primary) hypertension; R79.89 Other specified abnormal findings of blood chemistry; Z79.899 Other long term (current) drug therapy
CPT/HCPCS: 36415; 80053; 83036; 84443; 85027

== ENCOUNTER 2025-08-30 14:48 | Outpatient (AMB) | payer MEDICARE, SELFPAY ==
--- OUTSIDE RECORDS SUMMARY | 2025-08-31 03:19 | XMS_ITS | Patient Health Record ---
Author Organization [facility] [place] Address [address] [facility] [place] [address] Care Team Providers Care Nurse School Name Role Phone Francisco CLARKE, Alvarez Primary Care Provider Unavailab johana NgTalyae Unavailable [phone] Allergies Allergen (clinical drug ingredient) Drug/Non Drug [...] Medicare National Govt Svcs Inc [address] [place] [address] [id number] Sugey Smyth Self - patient is the insured [employer] [facility] [address] [place] [address] [id number] Sugey Smyth Self - patient is the insured Medical (General) History Medical History History ICD Code Anxiety Arthritis Back,Hip,and Knee pain Glaucoma High blood pressure Surgical History Surgery Date(Month/Year) x2 05/04/1976,12/21/1978 hysterectomy 12/30/1978
--- OUTSIDE RECORDS SUMMARY | 2025-08-31 03:20 | XMS_ITS | Patient Health Record ---
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 Name Role Phone Francisco (RETIRED) Alvarez CLARKE Primary Care Provider Unavailable [facility] Solorzano Unavailable [phone] Allergies Allergen (clinical drug ingredient) Drug/Non Drug Allergy documented on EMR Reaction Allergy Type Onset Date Status Sudafed Unknown Drug Allergy Active Reason For Referral No Information Medications Medication SIG (Take, Route, Frequency, Duration) Notes Start Date End Date Status LORazepam 0.5 MG Tablet 1 tablet as need ed Orally every 6 hrs Active Lisinopril 10 MG Tablet 1 tablet Orally Once a day; Duration: 30 day(s) Active Aspirin 81 81 MG Tablet Chewable 1 tablet Orally Once a day; Duration: 30 day(s) Not-Taking/PRN Meclizine HCl 25 MG Tablet Chewable 1 tablet as needed Orally Once a day; Duration: 30 day(s) Active Simvastatin 20 MG Tablet 1 tablet in the evening Orally Once a day; Duration: 30 day(s) Active Immunizations Vaccine Route Administration Date Status Comme nts Influenza Unknown 08/12/2018 Administered Social History Tobacco Use: Social History Observation Description Date Details (start date - stop date) Never Smoker NA - NA Social History Drugs/Alcohol: Social Info Question Answer Notes Alcohol Screen Did you have a drink containing alcohol in the past year? Yes How often did you have a drink containing alcohol in the past year? 2 to 3 times a week (3 points) How many drinks did you have on a typical day when you were drinking in the past year? 1 or 2 drinks (0 point) How often did you have 6 or more drinks on one occasion in the past year? Never (0 point) Points 3 Interpretation Positive Tobacco Use: Social Info Question Answer Notes Tobacco Use/Smoking Patient is a nonsmoker Additional Details Category Social Info Options Details Miscellaneous: Marital status: Occupation: [employer] for [employer] Section Notes: Red wine with meals 3 times a week ; nonsmoker Problems Problem Type SNOMED Code ICD Code Onset Dates Problem Status W/U Status Risk Notes Problem Screening for malignant neoplasm of colon (848680109) Encounter for screening for malignant neoplasm of colon (Z12.11) Active confirmed Problem Preprocedural examination (570387938555995) Preprocedural examination (Z01.818) Active confirmed Plan Of Treatment Future Test Test Name Order Date COLONOSCOPY 10/26/2018 Insurance Providers Payer Name Payer Address Payer Phone Subscriber Number Group Number Insured Name Patient Relationship to Insured Coverage Start Date Coverage End Date [facility] [address] [place] [phone] [id number] VIVIAN SMYTH Self - patient is the insured Medical (General) History Medical History History ICD Code Hypertension Denies [place],DM,CVA,Lung disease,renal dise ase Hyperlipidemia Rare panic attacks Colonoscopy 07/2008--hyperpl astic polyp, occasional sigmoid diverticulosis, small internal hemorrhoids Surgical History Surgery Date(Month/Year) C-sections X 2 Partial hysterectomy
== END 2025-08-30 14:49 | disposition home or self-care (01) ==
LOC: HO.HMGAL 14:48
PROVIDERS: PCP Physician Assistant Medical; Visit Provider Registered Nurse Emergency
DX: J30.89 Other allergic rhinitis (principal)
CPT/HCPCS: 95117; 95165